=== PATIENT | female | born 1980 | race Hispanic/Latino ===

== ENCOUNTER → 2017-07-17 | Outpatient (CLI) | payer BC ==
--- NOTE | 2017-07-17 12:40 | Diagnostic Imaging Report ---
DOUBLE CONTRAST ESOPHOGRAM TECHNIQUE: Thin barium and thick barium and effervescent granules were administered and fluoroscopy was performed of the pharynx and esophagus with spot images. COMPARISON: None. INDICATIONS: Post ROSARIO dysphagia. RADIATION DOSE: Fluoroscopy time: 3 minutes Dose (Kerma) Area Product: 14.46 mGy Air Kerma value has been reviewed. It is below the limits set by the Radiation Protocol Committee. FINDINGS: Pharynx: Oral transit time was normal. There is no significant pooling in the valleculae or pyriform sinuses. No evidence of nasopharyngeal reflux, laryngeal penetration, or von tracheal aspiration. No cricopharyngeal abnormalities. The pharynx and cervical spine have a normal appearance. Esophagus: Motility is within normal limits. The mucosa is unremarkable. There was normal distensibility. No evidence of leak. Gastroesophageal junction: There is no evidence of hiatal hernia. Reflux: Assessment for gastroesophageal reflux demonstrated no evidence of reflux. The visualized portion of the stomach and proximal small bowel are unremarkable. IMPRESSION: Normal pharyngogram and esophagram. No evidence of leak. Dictated by: Chani Bowen M.D. on 07/17/2017 at 12:47 Electronically approved by: Chani Bowen M.D. on 07/17/2017 at 12:47
== END ==
LOC: DX 10:41
PROVIDERS: ATTEND Internal Medicine Interventional Cardiology
DX: R06.02 Shortness of breath (principal); R13.10 Dysphagia, unspecified
CPT/HCPCS: 74220